=== PATIENT | male | born 1945 | race Caucasian/White ===

== ENCOUNTER 2016-09-07 17:04 | Emergency (ER) | payer OTHER, BC ==
[2016-09-07 17:32] VITALS: RESP 18; TEMP 98.2
--- NOTE | 2016-09-07 17:38 | PDOC ---
Lower Extremity Problem HPI - General Chief Complaint: Lower Extremity Problem/Injury Stated Complaint: PAIN, SWELLING RIGHT KNEE Date Seen by Provider: 09/07/16 Time Seen by Provider: 17:36 - History of Present Illness Initial Comments: Mr. Mason is a 71-year-old man coming today with pain to his right lower extremity onset 3 days ago. They just finished a long car ride from [facility]. He was in a seated position for more than 15 hours per day. He has no shortness of breath and he has no chest pain. He has no loss of strength to the right knee or leg. His daughter is a nurse on when they were talking to her , she expressed concern that he might have a blood clot given his pain and recent immobilization. They are here to assess for the possibility of a blood clot in his right leg. He states that the pain is actually better now than it was a few days ago. He's been able to get up and move around which seems to have worked out a lot of his discomfort. - Patient Home Medications Home Medications: Home Medications Acetaminophen 500 mg PO Q4H PRN PRN 09/07/16 Clopidogrel Bisulfate [Clopidogrel] 75 mg PO DAILY 09/07/16 Ezetimibe 10 mg PO DAILY 09/07/16 Gabapentin 300 mg PO BID 09/07/16 Omeprazole 40 mg PO DAILY 09/07/16 Silodosin [Rapaflo] 8 mg PO DAILY 09/07/16 - Patient Allergies Allergies/Adverse Reactions: Allergies Allergy/AdvReac Type Severity Reaction Status Date / Time celecoxib [From Celebrex] Allergy Intermediate HIVES Verified 09/07/16 17:21 Past Medical History - heen HEENT History: Denies History Cardiovascular History: Denies History Respiratory History: Denies History Gastrointestinal History: Denies History Genitourinary History: Recurrent UTI Endocrine History: Denies History Musculoskeletal History: Joint Pain, Other (please comment) Additional Musculoskeletal History: SCIATIC NERVE PAIN BACK Neurological History: TIA, Other (please comment) Additional Neurological History: MULTIPLE Blood Disorders: Denies History History of Sexually Transmitted Diseases: No Male Reproductive History: Denies History Cancer History: Other (please comment) Cancer Treatment / Date(s) of Treatment: 2010 In Past Year Been Physically Harmed or Verbally Threatened: No History of MDRO: No History of Other Communicable Diseases: No Tobacco Use: Former Smoker Alcohol Use: None Substance Use Type: None Previous Surgical History: Yes Type / Date of Surgery: APPY. RIGHT KNEE SCOPE. HEART CATH. TKR LEFT. TOTAL HIP LEFT Significant Family History: No pertinent family hx Past Medical History Reviewed: Reviewed - No Changes ROS - Limitations ROS Limitations: No Limitations Constitution: REPORTS: Denies Symptoms Cardiovascular: REPORTS: Denies Cardiac Symptoms Respiratory: REPORTS: Denies Resp Symptoms Neurological: REPORTS: Denies Neuro Symptoms Gastrointestinal: REPORTS: Denies GI Symptoms Endocrine: REPORTS: Denies Symptoms Musculoskeletal: REPORTS: Joint Pain Genitourinary: REPORTS: Denies Symptoms Eyes: REPORTS: Denies Symptoms ENT: REPORTS: Denies Symptoms Skin: REPORTS: Denies Skin Symptoms Lympathic: REPORTS: Denies Lympathic Symptoms Lower Ext Problem Exam - General Appearance General Appearance: POSITIVE: Alert, Cooperative, No Acute Distress - Extremities Lower Extremity: POSITIVE: Other (There is no right calf swelling, no redness, no tenderness. There is a small amount of tenderness to the posterior part of the right knee, with no swelling. range of motion is normal. strength is equal compared to left knee) Decreased Pulses: Right: Dorsalis-Pedis - Neck / Back / Pelvis Back / Neck: POSITIVE: Normal Inspection - Skin Skin: POSITIVE: Normal Color, Warm, Dry, No Rash - HEENT HEENT: POSITIVE: Head Inspection Nml, Eyes Inspection Nml, Ears Inspection Nml, PERRL, EOMI - Respiratory / CVS Respiratory / CVS: POSITIVE: No Respiratory Distress, Breath Sounds Normal, Regular Rate/Rhythm, Heart Sounds Normal - Abdomen Abdomen: Soft: (All Quadrants), Normal Bowel Sounds: (All Quadrants), Denies Tenderness: (All Quadrants) Images - Uploaded Photos Uploaded Photos: Lower Ext Problem Progress - Results Reviewed by me Xrays/CTs/US Reviewed by me: Yes Radiology Findings: no evidence of DVT - Patient's Progress MDM / ED Course: The ultrasound was normal. The is likely stiff from being in a seated position for so long. Mr Mason did not require any pain medicine while he was here, and he was able to walk with his cane. Patient Care Time - Estimated PCT Patient Care Time (In Minutes): 20 Vital Signs - Recent Vital Signs Vital Signs: Vital Signs (Last 8 hours) Temp Pulse Resp BP Pulse Ox 09/07/16 17:05 98.2 F 68 18 143/87 95 - VS Reviewed Vital Signs Reviewed: Yes Discharge Clinical Impression: Knee pain, right Qualifiers: Chronicity: acute Qualifier Code: (M25.561) Pain in right knee Discharge Disposition: Discharged to Home Condition: Stable Patient Instructions Given at Discharge: Knee Pain (ED) Additional Instructions: Your ultrasound showed no evidence of blood clots in the right knee.
--- NOTE | 2016-09-07 19:04 | DI ---
VENOUS DOPPLER ULTRASOUND OF THE RIGHT LOWER EXTREMITY, 09/07/2016 5:39 PM: Clinical History: Right lower extremity (knee) pain. Previous Exam: None. Technique: 2D real-time imaging is supplemented with color Doppler ultrasound. Compression and augmen tation maneuvers were performed. The deep venous system from the groin to the popliteal fossa is norm al. The greater saphenous vein is normal. Reading: Negative venous Doppler ultrasound exam of the right lower extremity.
== END 2016-09-07 19:37 | disposition home or self-care (01) ==
LOC: ER 17:04
DX: M25.561 Pain in right knee (principal); R22.41 Localized swelling, mass and lump, right lower limb
CPT/HCPCS: 93971; 99282